=== PATIENT | male | born 1970 | race Caucasian/White ===

== ENCOUNTER 2022-06-21 09:05 | Emergency (ER) | payer OTHER, MEDICAID, SELFPAY ==
[2022-06-21 09:24] VITALS: BP 170/94; PULSE 82; RESP 18; TEMP 37.3; O2SAT 99
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
== END 2022-06-21 10:03 | disposition left against medical advice (07) ==
PROVIDERS: Emergency Provider Nurse Practitioner
DX: S16.1XXA Strain of muscle, fascia and tendon at neck level, initial encounter (principal); S05.92XA Unspecified injury of left eye and orbit, initial encounter; S80.11XA Contusion of right lower leg, initial encounter; V49.40XA Driver injured in collision with unspecified motor vehicles in traffic accident, initial encounter
CPT/HCPCS: 99203; A9270; G0463